=== PATIENT | female | born 1995 | race Caucasian/White ===

== ENCOUNTER 2024-03-03 07:16 | Emergency (ER) | payer MEDICAID, OTHER ==
[~2024-03-03] VITALS: Ht 152.4 cm; Wt 58.0 kg
[~2024-03-03 07:16] MED LIST: FOLI-43 PO; PREN-88 PO
[2024-03-03 07:23] VITALS: O2SAT 98
[2024-03-03 08:01] LABS: DIFFERENTIAL COMMENT 1; HEMATOCRIT. 32.5 % (36.0-48.0); HEMOGLOBIN. 10.9 g/dL (12.0-16.0); MEAN CORPUSCULAR HEMOGLOBIN 29.6 pg (28.0-32.0); MEAN CORPUSCULAR HGB CONC 33.6 g/dL (31.0-37.0); MEAN CORPUSCULAR VOLUME 88.3 fL (81.0-99.0); MEAN PLATELET VOLUME 8.9 fl (7.4-10.4); PLATELET 162 x1000/uL (130-400); RED BLOOD CELL COUNT 3.68 mill/uL (4.2-5.4); RED CELL DISTRIBUTION WIDTH 12.9 % (11.6-14.6); WHITE BLOOD COUNT 6.6 x1000/uL (4.5-11.0)
[2024-03-03 08:15] LABS: CHLORIDE 108 mEq/L (98-107); POTASSIUM 2.9 mEq/L (3.5-5.1); SODIUM 135 mEq/L (136-145)
[2024-03-03 08:16] LABS: CALCIUM 8.5 mg/dL (8.7-10.4); CARBON DIOXIDE 20 mEq/L (21-32)
[2024-03-03 08:21] LABS: CREATININE 1.1 mg/dL (0.6-1.0); GLUCOSE 110 mg/dL (70-105)
[2024-03-03 08:22] LABS: UREA NITROGEN BLOOD 12 mg/dL (9-23)
[2024-03-03 08:23] LABS: ALANINE AMINOTRANSFERASE 10 IU/L (10-49); ALBUMIN 4.2 g/dL (3.2-4.8); ASPARTATE AMINOTRANSFERASE 21 IU/L (<34)
[2024-03-03 08:24] LABS: BILIRUBIN DIRECT 0.3 mg/dL (<=3.0); BILIRUBIN TOTAL 0.9 mg/dL (0.1-1.0); PROTEIN TOTAL 8.8 g/dL (6.0-8.3)
[2024-03-03] MEDS: SODIUM CHLORIDE 0.9% 1,000 ML IV ONE ×2 (08:51→13:45)
[2024-03-03] MEDS: ONDANSETRON HCL 4MG/2ML INJ IV ONE (08:54)
[2024-03-03] MEDS: POTASSIUM CHLORIDE 20MEQ TABLET SR PO ONE (08:59)
[2024-03-03 09:30] LABS: HCG SCREEN NEGATIVE
[2024-03-03 10:36] LABS: CLARITY URINE CLEAR (CLEAR); COLOR URINE YELLOW (YELLOW); GLUCOSE URINE NEGATIVE (NEGATIVE); KETONES URINE NEGATIVE (NEGATIVE); LEUKOCYTE ESTERASE URINE NEGATIVE (NEGATIVE); NITRITE URINE NEGATIVE (NEGATIVE); OCCULT BLOOD URINE 2+ (NEGATIVE); PH URINE 6.5 (4.5-8.0); PROTEIN URINE 1+ (NEGATIVE); SPECIFIC GRAVITY URINE 1.006 (1.005-1.030); UROBILINOGEN URINE 0.2 E.U./dL (0.2-1.0)
[2024-03-03 10:56] LABS: SQUAMOUS EPITHELIAL CELL URINE FEW /lpf (RARE/1+)
[2024-03-03 10:57] LABS: BACTERIA URINE 2+; RBC URINE 0-2 /hpf (0-2); WBC URINE 0-2 /hpf (0-2)
[2024-03-03] MEDS: KETOROLAC 30MG/ML VIAL IV ONE (14:09)
[2024-03-03 14:11] VITALS: BP 100/55; PULSE 99; RESP 16; TEMP 98.9
[2024-03-03 14:33] LABS: PLATELET ESTIMATE NORMAL
== END 2024-03-03 14:11 | disposition home or self-care (01) ==
LOC: ER 07:44
DX: A08.4 Viral intestinal infection, unspecified (principal); E86.0 Dehydration; E87.6 Hypokalemia
CPT/HCPCS: 80076; 80048; 81003; 81025; 84703; 83605; 83690; 85025; 87040; 36415; 84145; 74176; 93005; 96361; 96374; 99285; J2405; J7030; Z7610 ×2